=== PATIENT | female | born 1975 | race Caucasian/White ===

== ENCOUNTER 2016-10-27 23:05 | Observation (INO) | payer BC ==
[2016-10-27] MEDS ORDERED: ASPIRIN 81 MG CHEWTAB ONE (23:18)
[2016-10-27] MEDS ORDERED: NITROSTAT SL ONE (23:18)
[2016-10-27] MEDS: NITROSTAT SL PRN ×2 (23:30→23:35)
[2016-10-27] MEDS ORDERED: PEPCID 20 MG IV PREMIX* 20 MG/50 ML BAG IV ONE ×2 (23:36→23:42)
--- NOTE | 2016-10-27 23:36 | DR.GENAD ---
HPI - PCP Primary Care Physician: REMI - HPI Comment HPI Comment: PATIENT GOT SICK FRIDAY WITH ABDOMINAL PAIN AND HEADACHE.THIS WAS WORSE YESTERDAY. THE CHEST TIGHTNESS STARTED YESTERDAY AND IS WORSE TODAY. S/L NTG IN ED TIMES 2 RESOLVED THE CHEST PAIN. BP IMPROVED WITH LOPRESSOR IN ED. PATIENT IS WEAK. NO MEDS TAKING FOR THESE SYMTOMS. - Complaint/Symptoms Chief Complaint Doctors Comments: CHEST PAIN, ELEVATED BLOOD PRESSURE AND HEADACHE TIMES Chief Complaint:: CHEST PAIN ELEVATED BLOODPRESSURE, HINOJOSA - Nurses notes reviewed Nurses Notes Review: Yes - Source History Provided: Patient - Mode of Arrival Mode of Arrival: Ambulatory - Timing Onset of Chief Complaint: 10/27/16 Came on: Suddenly - Duration Duration: Intermittent Duration: Days - Severity Severity: Moderate PMH - PMH Past Medical History: Yes Past Medical History: Anxiety, Migraines, Hypothyroidism Past Medical History Comment: GLAUCOMA Past Surgical History: Yes Surgical History: Hysterectomy Past Surgical History Comment: 3 LAPRISCOPY, BREAST AUGMENTATION, WISDOM TOOTH REMOVAL, - Family History History of Family Medical Conditions: Yes Family Medical History: Diabetes Mellitus, Cancer, Hypertension - Social History Does patient currently use any type of tobacco product: No Have you used tobacco products in the last 12 months: No Type of Tobacco Use: None Does any household member use tobacco: No Alcohol Use: Rarely Do you use any recreational Drugs:: No Lives With: Family Lives Where: Home - infectious screening In the last 2 months have you had wt loss of >10#?: NO Have you had fever, night sweats or hemotysis?: No Have you traveled outside the country in the last 6 months?: No Isolation: Standard ROS - Review of Systems Constitutional: Weakness Eyes: No Symptoms Reported. negative: Eye Pain, Discharge ENTM: No Symptoms Reported. negative: Ear Pain, Hearing Loss, Nose Discharge, Epistaxis Respiratoy: Short of Breath. negative: Productive Cough, Non-Productive Cough, Wheezing, Hemoptysis Cardiovascular: Chest Pain. negative: Edema, Palpitations Gastrointestinal/Abdominal: No Symptoms Reported. negative: Abdominal Pain, Constipation, Diarrhea, Nausea, Vomiting Genitourinary: No Symptoms Reported. negative: Dysuria, Frequency, Hematuria Neurological: No Symptoms Reported, Weakness. negative: Headache, Dizziness Musculoskeletal: Muscle Pain Integumentary: No Symptoms Reported Hematologic/Lymphatic: No Symptoms Reported Endocrine: No Symptoms Reported All Other Systems: Reviewed and Negative PE - Vital Signs Vitals: Temperature 98.3 F Pulse Rate [Right] 80 Pulse Rate 88 Respiratory Rate 20 Blood Pressure [Left Arm] 131/91 Blood Pressure 139/98 O2 Sat by Pulse Oximetry 94 - General Limitations: No Limitations General Appearance: Alert - Head Head Exam: Normal Inspection - Eyes Eye exam: Normal Appearance - ENT ENT Exam: Normal External Ear Exam External Ear Exam: Normal External Inspection TM/Canal Exam: Bilateral Normal Nose Exam: Normal Nose Exam Mouth Exam: Normal Inspection Throat Exam: Normal Inspection - Neck Neck Exam: Normal Inspection - Chest Chest Inspection: Symmetric Chest Wall Rise - Respiratory Respiratory Exam: Normal Lung Sounds Bilat Respiratory Exam: Bilateral Rhonchi, Lower Rhonchi - Cardiovascular Cardiovascular Exam: Regular Rate, Normal Rhythm, Normal Heart Sounds - Abdominal Exam Abdominal Exam: Normal Bowel Sounds, Soft. negative: Tenderness - Extremities Extremities Exam: Normal Inspection - Back Back Exam: Normal Inspection - Neurologic Neurological Exam: Alert, Oriented X3 - Psychiatric Psychiatric Exam: Anxious - Skin Skin Exam: Normal Color MDM - Additional Information Additional Information Obtained From: Family - Differential Diagnosis Differential Diagnosis: CHEST PAIN, ABNOEMAL EKG, ELEVATED BP Course - Treatment Treatment: SEE ORDERS - Reevaluation 1st: Improved (S/L NTG TIMES 2, PAIN RESOLVE. ) - Consultation Consultation Comments: DISCUSS PATIENT WITH DR. SULLIVAN. HE WILL ADMIT PATIENT. - Education/Counseling Education/Counseling: Patient, Family, Education Educated On: Treatment, Diagnosis, Needs for Follow Up ROR - Labs Reviewed Laboratory Results Reviewed?: Yes Result Diagrams: 10/27/16 23:30 10/27/16 23:30 Laboratory: WBC 9.4 X10^3/uL (3.6-10.0) 10/27/16 23:30 RBC 4.95 X10^6/uL (3.5-5.4) 10/27/16 23:30 Hgb 15.0 g/dL (12.0-16.0) 10/27/16 23:30 Hct 43.4 % (36.0-47.0) 10/27/16 23:30 MCV 87.7 fL (80.0-100.0) 10/27/16 23:30 MCH 30.4 pg (27.0-34.0) 10/27/16 23:30 MCHC 34.7 g/dL (33.0-35.0) 10/27/16 23:30 RDW 13.2 % (11.6-16.5) 10/27/16 23: Plt Count 212 X10^3/uL (150.0-450.0) 10/27/16 23:30 MPV 9.8 fL (7.4-11.0) 10/27/16 23: Neut % 64.3 % (42.0-75.0) 10/27/16 23: Lymph % 25.7 % (21.0-51.0) 10/27/16 23: Alpine % 7.1 % (0.0-13.0) 10/27/16 23: Eos % 2.2 % (0.9-2.9) 10/27/16: Baso % 0.7 % (0.2-1.0) 10/27/16 23: Neut # 6.0 x10^3/uL (2.2-4.8) H 10/27/16 23: Lymph # 2.4 X10^3/uL (1.3-2.9) 10/27/16 23:30 Alpine # 0.7 x10^3/uL (0.3-0.8) 10/27/16 23: Eos # 0.2 x10^3/uL (0.0-0.2) 10/27/16 23:30 Baso # 0.1 X10^3/uL (0.0-0.1) 10/27/16 23: Absolute Nucleated RBC 0.1 /100WBC 10/27/16 23: D-Dimer 300 ng/mL (0-400) 10/27/16 23:30 Sodium 144 mmol/L (136-145) 10/27/16 23:30 Corrected Sodium 145 mmol/L (136-145) 10/27/16 23:30 Potassium 3.5 mmol/L (3.5-5.1) 10/27/16 23:30 Chloride 105 mmol/L (98-107) 10/27/16 23:30 Carbon Dioxide 29.5 mmol/L (21-32) 10/27/16 23:30 BUN 14 mg/dL (7-18) 10/27/16 23:30 Creatinine 1.48 mg/dL (0.55-1.02) H 10/27/16 23:30 Est GFR (MDRD) Af Amer 50 (>60) L 10/27/16 23:30 Est GFR (MDRD) Non-Af 41 (>60) L 10/27/16 23:30 Glucose 122 mg/dL (65-99) H 10/27/16 23:30 Calcium 9.3 mg/dL (8.5-10.1) 10/27/16 23:30 Corrected Calcium TNP 10/27/16 23:30 Total Bilirubin 0.40 mg/dL (0.2-1.0) 10/27/16 23:30 AST 31 Units/L (15-37) 10/27/16 23:30 ALT 63 Units/L (12-78) 10/27/16 23:30 Alkaline Phosphatase 83 Units/L (46-116) 10/27/16 23:30 Creatine Kinase 70 Units/L (26-192) 10/27/16 23:30 CK-MB (CK-2) 1.0 ng/mL (0-4.0) 10/27/16 23:30 CK/CKMB % Calc 1.4 % (<4) 10/27/16 23:30 Troponin I < 0.02 ng/mL (0-1.5) 10/27/16 23:30 B-Natriuretic Peptide 9.5 pg/mL (0-79) 10/27/16 23:30 Total Protein 7.3 g/dL (6.4-8.2) 10/27/16 23:30 Albumin 3.8 g/dL (3.4-5.0) 10/27/16 23:30 Globulin 3.5 g/dL (2.5-4.5) 10/27/16 23:30 Albumin/Globulin Ratio 1.1 Ratio (1.1-2.1) 10/27/16 23:30 H. pylori IgG Antibody Negative (NEGATIVE) 10/27/16 23:30 - XRAY XRAY Interpreted by: Radiologist XRAY Findings: REPORT DISCUSS WITH PATIENT. - EKG Rhythm: NSR (EKG NOTED. SOME ST DEPRESION NOTED) - Diagnosis Discharge Problem: Chest pain, Abnormal electrocardiogram [ECG] [EKG], Elevated blood pressure reading without diagnosis of hypertension - Discharge Plan Disposition: ADMITTED INPATIENT Condition: Stable - Follow ups/Referrals - Instructions
[2016-10-27] MEDS ORDERED: ASPIRIN 81 MG CHEWTAB PO SCH (23:45)
[2016-10-27 23:46] LABS: BASOPHILS # (AUTO) 0.1 X10^3/uL (0.0-0.1); BASOPHILS % (AUTO) 0.7 % (0.2-1.0); EOSINOPHILS # (AUTO) 0.2 x10^3/uL (0.0-0.2); EOSINOPHILS % (AUTO) 2.2 % (0.9-2.9); HEMATOCRIT 43.4 % (36.0-47.0); LYMPHOCYTES # (AUTO) 2.4 X10^3/uL (1.3-2.9); LYMPHOCYTES % (AUTO) 25.7 % (21.0-51.0); MEAN CORPUSCULAR HEMOGLOBIN 30.4 pg (27.0-34.0); MEAN CORPUSCULAR HGB CONC 34.7 g/dL (33.0-35.0); MEAN CORPUSCULAR VOLUME 87.7 fL (80.0-100.0); MEAN PLATELET VOLUME 9.8 fL (7.4-11.0); MONOCYTES # (AUTO) 0.7 x10^3/uL (0.3-0.8); MONOCYTES % (AUTO) 7.1 % (0.0-13.0); NEUTROPHILS % (AUTO) 64.3 % (42.0-75.0); PLATELET COUNT 212 X10^3/uL (150.0-450.0); RED BLOOD COUNT 4.95 X10^6/uL (3.5-5.4); RED CELL DISTRIBUTION WIDTH 13.2 % (11.6-16.5); WHITE BLOOD COUNT 9.4 X10^3/uL (3.6-10.0)
[2016-10-27] MEDS ORDERED: TYLENOL 500 MG TAB EXTRA STRENGTH ONE (23:53)
[2016-10-27] MEDS ORDERED: TYLENOL 500 MG TAB EXTRA STRENGTH PO ONE (23:55)
[2016-10-28] LABS: BLOOD UREA NITROGEN 14 mg/dL (7-18); CALCIUM 9.3 mg/dL (8.5-10.1); CARBON DIOXIDE 29.5 mmol/L (21-32); CHLORIDE 105 mmol/L (98-107); COR NA(FOR HYPERGLY) 145 mmol/L (136-145); CREATININE 1.48 mg/dL (0.55-1.02); GLUCOSE 122 mg/dL (65-99); SODIUM 144 mmol/L (136-145); TROPONIN I < 0.02 ng/mL (0-1.5); eGFR BLACK RACES 50 (>60); eGFR NON BLACK RACES 41 (>60)
[2016-10-28] MEDS ORDERED: LOPRESSOR INJ 5 MG AMP IVP ONE (00:02)
--- NOTE | 2016-10-28 00:03 | RAD ---
EXAM: Chest X-ray INDICATION: Chest pain COMPARISION: No prior TECHNIQUE: AP, single view FINDINGS: The lungs are clear in the lung volumes are within normal limits. No pleural effusion or pneumothora x. The cardiac silhouette and mediastinum are normal. The regional skeleton is intact. IMPRESSION: Normal Chest X-Ray Reported By:
[2016-10-28 00:05] LABS: ALANINE AMINOTRANSFERASE 63 Units/L (12-78); ALBUMIN 3.8 g/dL (3.4-5.0); ALKALINE PHOSPHATASE 83 Units/L (46-116); ASPARTATE AMINO TRANSFERASE 31 Units/L (15-37); CKMB % 1.4 % (<4); CREATINE KINASE 70 Units/L (26-192); TOTAL PROTEIN 7.3 g/dL (6.4-8.2)
[2016-10-28 00:08] LABS: B-TYPE NATRIURETIC PEPTIDE 9.5 pg/mL (0-79)
[2016-10-28] MEDS ORDERED: LOPRESSOR INJ 5 MG AMP ONE ×2 (00:08→00:10)
[2016-10-28 00:13] LABS: D DIMER 300 ng/mL (0-400)
[2016-10-28] MEDS ORDERED: ATIVAN TAB 1 MG PO PRN (01:06)
[2016-10-28] MEDS ORDERED: MORPHINE SULFATE INJ 4 MG IVP PRN (01:06)
[2016-10-28] MEDS ORDERED: PHENERGAN INJ 25 MG IV PRN (01:11)
[2016-10-28] MEDS ORDERED: VISTARIL PO PRN (02:10)
[2016-10-28 02:24] LABS: BILIRUBIN,URINE NEGATIVE (NEGATIVE); BLOOD/HEMOGLOBIN,URINE NEGATIVE (NEGATIVE); GLUCOSE, URINE NEGATIVE (NEGATIVE); KETONES,URINE NEGATIVE (NEGATIVE); LEUKOCYTE ESTERASE ,URINE 1+ (NEGATIVE); NITRITES,URINE NEGATIVE (NEGATIVE); PROTEIN,URINE 1+ (NEGATIVE); UROBILINOGEN,URINE NORMAL (NORMAL)
[2016-10-28 02:29] LABS: APPEARANCE,URINE CLEAR (CLEAR); BACTERIA,URINE TRACE /HPF (NEGATIVE); CALCIUM OXALATE CRYSTALS,UR FEW /HPF (NEGATIVE); COLOR,URINE YELLOW (YELLOW); RBC,URINE NONE SEEN /HPF (NEGATIVE); SQUAMOUS EPITHELIAL CELL,UR RARE /HPF (NEGATIVE)
[2016-10-28 02:30] LABS: MUCUS,URINE MODERATE /HPF (NEGATIVE)
[2016-10-28 02:58] VITALS: BMI 29.6
[2016-10-28 05:48] LABS: BASOPHILS # (AUTO) 0.1 X10^3/uL (0.0-0.1); BASOPHILS % (AUTO) 0.8 % (0.2-1.0); EOSINOPHILS # (AUTO) 0.2 x10^3/uL (0.0-0.2); EOSINOPHILS % (AUTO) 2.3 % (0.9-2.9); HEMATOCRIT 42.9 % (36.0-47.0); HEMOGLOBIN 14.7 g/dL (12.0-16.0); LYMPHOCYTES # (AUTO) 2.2 X10^3/uL (1.3-2.9); LYMPHOCYTES % (AUTO) 27.6 % (21.0-51.0); MEAN CORPUSCULAR HEMOGLOBIN 29.9 pg (27.0-34.0); MEAN CORPUSCULAR HGB CONC 34.3 g/dL (33.0-35.0); MEAN CORPUSCULAR VOLUME 87.4 fL (80.0-100.0); MEAN PLATELET VOLUME 10.1 fL (7.4-11.0); MONOCYTES # (AUTO) 0.6 x10^3/uL (0.3-0.8); NEUTROPHILS # (AUTO) 4.9 x10^3/uL (2.2-4.8); NEUTROPHILS % (AUTO) 62.3 % (42.0-75.0); PLATELET COUNT 199 X10^3/uL (150.0-450.0); RED BLOOD COUNT 4.91 X10^6/uL (3.5-5.4); RED CELL DISTRIBUTION WIDTH 13.4 % (11.6-16.5); WHITE BLOOD COUNT 7.8 X10^3/uL (3.6-10.0)
[2016-10-28 05:54] LABS: ALANINE AMINOTRANSFERASE 59 Units/L (12-78); ALBUMIN 3.8 g/dL (3.4-5.0); ALKALINE PHOSPHATASE 76 Units/L (46-116); ASPARTATE AMINO TRANSFERASE 29 Units/L (15-37); BLOOD UREA NITROGEN 14 mg/dL (7-18); CALCIUM 9.5 mg/dL (8.5-10.1); CARBON DIOXIDE 31.5 mmol/L (21-32); CHLORIDE 107 mmol/L (98-107); CHOL/HDL RATIO 4.3 (0.0-5.0); CHOLESTEROL 152 mg/dL (0-200); COR NA(FOR HYPERGLY) 146 mmol/L (136-145); GLUCOSE 117 mg/dL (65-99); HDL CHOLESTEROL 35 mg/dL (40-60); SODIUM 146 mmol/L (136-145); TOTAL PROTEIN 7.1 g/dL (6.4-8.2); TRIGLYCERIDES 90 mg/dL (0-150); eGFR BLACK RACES > 60 (>60); eGFR NON BLACK RACES 53 (>60)
[2016-10-28] MEDS ORDERED: SYNTHROID 75 mcg TAB PO SCH (07:00)
[2016-10-28 08:24] LABS: CKMB % 1.5 % (<4); CREATINE KINASE 65 Units/L (26-192); CREATINE KINASE MB < 1.0 ng/mL (0-4.0); TROPONIN I < 0.02 ng/mL (0-1.5)
[2016-10-28] MEDS ORDERED: PEPCID 20 MG IV PREMIX* 20 MG/50 ML BAG IV SCH (09:00)
[2016-10-28] MEDS ORDERED: ASPIRIN EC 81 MG PO SCH (09:00)
[2016-10-28] MEDS ORDERED: EFFEXOR XR 150 MG CAP PO SCH (09:00)
[2016-10-28] MEDS ORDERED: NS 500 ML IV 500 ML IV ONE (09:15)
[2016-10-28] MEDS ORDERED: NS 500 ML IV 500 ML IV SCH (10:00)
[2016-10-28 11:25] LABS: CKMB % 1.9 % (<4); CREATINE KINASE 54 Units/L (26-192); CREATINE KINASE MB < 1.0 ng/mL (0-4.0); TROPONIN I < 0.02 ng/mL (0-1.5)
--- NOTE | 2016-10-28 11:49 | DR.CARTERS ---
Short Stay Summary - Short Stay Summary for: Short Stay Summary for Date of:: 10/28/16 - Admission Date Date of Admission: 10/27/16 - Discharge Date Discharge Date: 10/28/16 - Admission Diagnoses (1) Chest pain Status: Acute (2) Abnormal electrocardiogram [ECG] [EKG] Status: Acute (3) Elevated blood pressure reading without diagnosis of hypertension Status: Acute (4) Depression Status: Chronic (5) Hypothyroidism Status: Chronic - Hospital Course Hospital Course: DAY 1 OF HOSPITAL STAY- PATIENT PRESENTED TO THE EMERGENCY ROOM WITH COMPLAINTS OF CHEST PAIN. SYMPTOMS OF ABDOMINAL PAIN AND HEADACHE STARTED ON 10/25/16. PATIENT REPORTS SYMPTOMS WORSENED WITH CHEST PAIN AND HYPERTENSION. PATIENT REPORTS TAKING NO MEDICATIONS FOR THE SYMPTOMS AT HOME. PATIENT HAS NO HISTORY OF HYPERTENSION OR CARDIAC DISEASE. PATIENT'S PRIMARY CARE PHYSICIAN IS . LABS AND EKG OBTAINED IN THE ER. CBC WNL. CMP WNL EXCEPT CREATININE 1.48, GLUCOSE 122, GFR, 41. CARDIAC ENZYMES WNL. EKG REPORTS NSR. CHEST XRAY IS NORMAL. WE ADMITTED PATIENT FOR FURTHER EVALUATION AND TREATMENT. DAY 2 OF HOSPITAL STAY- PATIENT DENIED CHEST PAIN. PATIENT REPORTED SHE WAS FEELING BETTER. NO SHORTNESS OF BREATH NOTED. PATIENT DENIED NAUSEA. CARDIAC EZYMES AND EKGS WNL. PATIENT HAS RECEIVED IV FLUIDS WITH IMPROVEMENT IN RENAL FUNCTION. WE DISCUSSED LABS, EKGS AND FOLLOW UP STRESS TEST OUTPATIENT. PATIENT VOICED UNDERSTANDING. BLOOD PRESSURE IS 129/84. PULSE IS 98. WE PLANNED FOR DISCHARGE. INSTRUCTIONS FOR MEDICATIONS AND FOLLOW UP WERE GIVEN TO PATIENT AND FAMILY. BOTH VOICED UNDERSTANDING. PATIENT DISCHARGED HOME WITH PRESCRIPTIONS FOR ASA AND ATORVASTATIN. PATIENT WAS DISCHARGED HOME IN STABLE CONDITION WITH FAMILY. - Discharge Medications Discharge Medications: Aspirin EC [ASPIRIN EC 81 MG *] 81 mg PO DAILY #30 tab 10/28/16 [Rx] Atorvastatin Calcium [LIPITOR Tab 10 mg *] 10 mg PO HS #30 tab 10/28/16 [Rx] Latanoprost 0.005 % (Ophth) [XALATAN (OPHTH) DROPS 0.005 % *] 1 drop OP HS 10/28 [History] Levothyroxine Sodium [Levo-T] 1 tab PO DAILY 10/28/16 [History] Venlafaxine HCl [Venlafaxine HCl ER] 1 tab PO DAILY 10/28/16 [History] - Discharge Plan Disposition: 01 HOME, SELF-CARE Condition: Stable Prescriptions: Aspirin EC [ASPIRIN EC 81 MG *] 81 mg PO DAILY #30 tab Atorvastatin Calcium [LIPITOR Tab 10 mg *] 10 mg PO HS #30 tab - Follow up/Referrals Follow up/Referrals: Rajendra Barrera [Primary Care Provider] - 1 WEEK - Instructions Additional Instructions: ACTIVITY TOLERATED. DIET TOLERATED.
[2016-10-28 13:49] VITALS: BP 135/87
== END 2016-10-28 13:30 | disposition home or self-care (01) ==
LOC: ER 23:05 → MED/SURG 10-28 00:46
PROVIDERS: ADMIT Internal Medicine; ATTEND Internal Medicine
DX: R07.89 Other chest pain (principal); R94.31 Abnormal electrocardiogram [ECG] [EKG]; R51 Headache; E03.8 Other specified hypothyroidism; R03.0 Elevated blood-pressure reading, without diagnosis of hypertension; F32.89 Other specified depressive episodes; E11.65 Type 2 diabetes mellitus with hyperglycemia
CPT/HCPCS: 36415; 71010; 80053; 80061; 81001; 82550; 82553; 83880; 84484; 85025; 85378; 86677; 93005; 93010; 93041; 94760; 96365; 96374; 96375; 99284; A4216; A4222; Q0177; S0028; G0378; J3490